=== PATIENT | female | born 1970 | race African-American/Black ===

== ENCOUNTER 2018-11-13 09:40 | Emergency (ER) | payer MEDICAID ==
[~2018-11-13] VITALS: Ht 149.9 cm; Wt 63.5 kg
[~2018-11-13 09:40] MED LIST: ACETAMINOPHEN-1 EAC1 PO; ATORVASTATIN CA40 MG PO; COLACE100 MG PO; CYCLOBENZAPRINE5 MG PO; DICLOFENAC SODI75 MG PO; DOXYCYCLINE 10100 MG PO; IBUPROFEN 600600 M1 PO; MEDROLDOSEPACK PO; MILK OF MA2400 MG/10 PO; MIRALAX17 GM PO; NORCO 5-325 TA1 EAC1 PO; PERCOCET 5-3251 EACH PO; PHENERGAN 25 MG25 M1 PO; PREDNISONE 10 M10 MG PO; PREDNISONE 20 M20 MG PO; PRINIVIL20 MG PO; PROAIR HFA8.5 GM INH; PROZAC10 MG PO; PROZAC20 MG PO; REGLAN 10 MG TA10 MG PO; SEROQUEL 25 MG25 M1 PO; SIMETHICON CHEW80 M1 PO; TESSALON PERLE100 MG PO; TRAZODONE HCL100 MG PO; ULTRAM 50MG TAB50 MG PO; VENTOLIN HFA 1818 GM INH; ZPAK PO
[2018-11-13 10:00] LABS: URINE BILIRUBIN NEGATIVE (Negative); URINE BLOOD 3+ (Negative); URINE CLARITY CLEAR; URINE COLOR YELLOW; URINE GLUCOSE-RANDOM NEGATIVE (Negative); URINE KETONES NEGATIVE (Negative); URINE NITRITE-REFLEX NEGATIVE (Negative); URINE PROTEIN TRACE (Negative); URINE UROBILINOGEN 0.2 E.U./dl (0.2-1.0)
[2018-11-13 10:05] LABS: HEMATOCRIT 34.1 % (37.0-47.0); HEMOGLOBIN 11.4 gm/dL (12.0-15.0); MCH 30.7 pg (26.0-34.0); MCHC 33.5 g/dL (28.0-37.0); MCV 91.6 fL (80.0-100.0); MPV 7.3 fl. (7.2-11.1); NUCLEATED RBCS 0 /100WBC; PLATELET COUNT* 300 thou/uL (150-400); RBC 3.72 mil/uL (4.20-5.00); RDW-CV 13.7 % (10.5-14.5); WBC 4.8 thou/uL (4.0-11.0)
[2018-11-13 10:05] LABS: URINE LEUKOCYTES-REFLEX 2+ (Negative)
[2018-11-13 10:09] LABS: BACTERIA-REFLEX 1-9 Few /HPF (None Seen); CASTS None Seen /LPF (None Seen); CRYSTALS None Seen /LPF (None Seen); SQUAMOUS NONE SEEN /LPF (0-3); URINE RBC >20 Many /HPF (0-2); URINE WBC-REFLEX 0-5 Rare /HPF (0-5)
[2018-11-13 10:22] LABS: ALBUMIN 2.8 g/dL (3.4-5.0); CALCIUM 9.7 mg/dL (8.5-10.1); CREATININE 1.2 mg/dL (0.6-1.3); TOTAL BILIRUBIN 0.6 mg/dL (<0.1-1.0); TOTAL PROTEIN 8.3 g/dL (6.4-8.2)
[2018-11-13 10:26] LABS: POTASSIUM 2.8 mmol/L (3.5-5.1)
[2018-11-13 10:30] LABS: ABSOLUTE BASOPHILS 0.1 thou/uL (0.0-0.2); ABSOLUTE EOSINOPHILS 0.6 thou/uL (0.0-0.7); ABSOLUTE LYMPHOCYTES 1.2 thou/uL (0.8-5.3); ABSOLUTE MONOCYTES 0.1 thou/uL (0.0-1.2); ABSOLUTE NEUTROPHILS 2.6 thou/uL (1.6-8.1)
[2018-11-13 10:31] LABS: ANISOCYTOSIS 1+; PLATELET ESTIMATE ADEQUATE; POIKILOCYTOSIS 1+
[2018-11-13] MEDS ORDERED: NORCO 5-325 TA1 EACH PO (11:03)
[2018-11-13] MEDS ORDERED: FLOMAX0.4 MG PO (11:03)
[2018-11-13] MEDS ORDERED: LEVAQUIN 500 M500 MG PO (11:03)
[2018-11-13 11:14] VITALS: BP 151/96
== END 2018-11-13 11:16 | disposition home or self-care (01) ==
LOC: M.ERS 09:40
PROVIDERS: Family Medicine
DX: N20.0 Calculus of kidney (principal); F31.9 Bipolar disorder, unspecified; Z88.6 Allergy status to analgesic agent; Z88.8 Allergy status to other drugs, medicaments and biological substances

== ENCOUNTER 2018-12-04 02:56 | Emergency (ER) | payer MEDICAID ==
[~2018-12-04] VITALS: Ht 149.9 cm; Wt 62.6 kg
[~2018-12-04 02:56] MED LIST changes: +FLOMAX0.4 MG PO; +LEVAQUIN 500 M500 MG PO; +NORCO 5-325 TA1 EACH PO
[2018-12-04 03:25] LABS: HEMATOCRIT 29.8 % (37.0-47.0); HEMOGLOBIN 10.3 gm/dL (12.0-15.0); MCH 31.6 pg (26.0-34.0); MCHC 34.5 g/dL (28.0-37.0); MCV 91.5 fL (80.0-100.0); MPV 7.3 fl. (7.2-11.1); NUCLEATED RBCS 0 /100WBC; PLATELET COUNT* 291 thou/uL (150-400); RBC 3.26 mil/uL (4.20-5.00); RDW-CV 13.3 % (10.5-14.5); WBC 3.8 thou/uL (4.0-11.0)
[2018-12-04 03:45] LABS: ANION GAP 11 mmol/L (7-16); BUN 10 mg/dL (7-18); CALCIUM 8.4 mg/dL (8.5-10.1); CHLORIDE 103 mmol/L (98-107); CO2 27 mmol/L (21-32); GLUCOSE 82 mg/dL (70-99); SODIUM 141 mmol/L (136-145); TROPONIN-I LEVEL <0.06 ng/mL (<0.06)
[2018-12-04 03:46] LABS: ALBUMIN 2.4 g/dL (3.4-5.0); ALKALINE PHOSPHATASE 689 U/L (46-116); LIPASE 173 U/L (73-393); MAGNESIUM 1.5 mg/dL (1.8-2.4); NT-PRO BRAIN NAT PEPTIDE 730 pg/mL (<300); POTASSIUM 2.9 mmol/L (3.5-5.1); SGOT 42 U/L (15-37); SGPT 22 U/L (30-65); TOTAL BILIRUBIN 0.6 mg/dL (<0.1-1.0); TOTAL PROTEIN 7.7 g/dL (6.4-8.2)
[2018-12-04 05:24] LABS: ABSOLUTE BASOPHILS 0.1 thou/uL (0.0-0.2); ABSOLUTE EOSINOPHILS 0.3 thou/uL (0.0-0.7); ABSOLUTE LYMPHOCYTES 1.6 thou/uL (0.8-5.3); ABSOLUTE MONOCYTES 0.5 thou/uL (0.0-1.2); ABSOLUTE NEUTROPHILS 1.3 thou/uL (1.6-8.1); ANISOCYTOSIS 1+; PLATELET ESTIMATE ADEQUATE; POIKILOCYTOSIS 1+
[2018-12-04] MEDS ORDERED: POTASSIUM20 PO (06:53)
[2018-12-04 09:26] VITALS: BP 151/82
--- NOTE | 2018-12-04 13:10 | EKG ---
[place] [address] ELECTROCARDIOGRAM REPORT Name: TONY JONES [id number] Admission: 12/04/18 Attend Phys: Discharge: 12/04/18 Date of : 70 Report #: [id number] THIS REPORT FOR: //name// [facility] ED Test Date: 2018-12-04 Test Time: 03:03:07 Pat Name: TONY JONES Department: Room: Gender: F Electrical And Instrument Engineer: EMETERIO : 1970 Requested By: Rancho Gavin Order Number: [id number] MD: Ben Avitia Measurements Intervals [place] Rate: 97 P: 54 HI: 175 QRS: 7 QRSD: 90 T: 29 QT: 356 QTc: 452 Interpretive Statements Sinus tachycardia Multiple ventricular premature complexes Probable left atrial enlargement Compared to ECG 03/14/2016 17:24:09 Ventricular premature complex(es) now present Electronically Signed On 12-04-2018 13:10:45 CDT by Ben Avitia [email or web address] <ELECTRONICALLY SIGNED> By: Ben Avitia MD, [facility] 12/04/18 1310 030 2 Ben Avitia MD, FACC /EPI
== END 2018-12-04 09:27 | disposition home or self-care (01) ==
LOC: M.ERS 02:56
PROVIDERS: Emergency Medicine Emergency Medical Services
DX: R07.89 Other chest pain (principal); D86.9 Sarcoidosis, unspecified; F31.9 Bipolar disorder, unspecified; Z88.5 Allergy status to narcotic agent; Z88.6 Allergy status to analgesic agent; Z88.8 Allergy status to other drugs, medicaments and biological substances

== ENCOUNTER 2018-12-29 14:44 | Emergency (ER) | payer MEDICAID ==
[~2018-12-29] VITALS: Ht 149.9 cm; Wt 55.3 kg
[~2018-12-29 14:44] MED LIST changes: +POTASSIUM20 PO
[2018-12-29 15:09] LABS: URINE BILIRUBIN NEGATIVE (Negative); URINE BLOOD 3+ (Negative); URINE COLOR YELLOW; URINE GLUCOSE-RANDOM NEGATIVE (Negative); URINE KETONES NEGATIVE (Negative); URINE NITRITE-REFLEX NEGATIVE (Negative); URINE PROTEIN 2+ (Negative); URINE UROBILINOGEN 0.2 E.U./dl (0.2-1.0)
[2018-12-29 15:10] LABS: URINE CLARITY HAZY; URINE LEUKOCYTES-REFLEX 3+ (Negative)
[2018-12-29 15:19] LABS: BACTERIA-REFLEX 1-9 Few /HPF (None Seen); CASTS None Seen /LPF (None Seen); CRYSTALS None Seen /LPF (None Seen); SQUAMOUS 0-3 Few /LPF (0-3); URINE WBC-REFLEX 6-15 Few /HPF (0-5)
[2018-12-29] MEDS ORDERED: PERCOCET 5-3251 EACH PO (16:32)
[2018-12-29] MEDS ORDERED: CIPRO500 M1 PO (16:34)
[2018-12-29 16:52] VITALS: BP 148/94
== END 2018-12-29 16:53 | disposition home or self-care (01) ==
LOC: M.ERS 14:44
PROVIDERS: Nurse Practitioner Family
DX: N39.0 Urinary tract infection, site not specified (principal); F31.9 Bipolar disorder, unspecified; Z88.5 Allergy status to narcotic agent; Z88.6 Allergy status to analgesic agent; Z88.8 Allergy status to other drugs, medicaments and biological substances; Z87.442 Personal history of urinary calculi

== ENCOUNTER 2019-02-13 17:09 | Emergency (ER) | payer MEDICAID ==
[~2019-02-13] VITALS: Ht 149.9 cm; Wt 63.5 kg
[~2019-02-13 17:09] MED LIST changes: +CIPRO500 M1 PO
[2019-02-13] MEDS ORDERED: PROZAC 20 MG20 MG PO (17:21)
[2019-02-13] MEDS ORDERED: NORCO 10-325 T1 EACH PO (17:21)
[2019-02-13 17:59] LABS: URINE BILIRUBIN NEGATIVE (Negative); URINE BLOOD 3+ (Negative); URINE CLARITY CLEAR; URINE COLOR YELLOW; URINE GLUCOSE-RANDOM NEGATIVE (Negative); URINE KETONES NEGATIVE (Negative); URINE PROTEIN 2+ (Negative); URINE SPECIFIC GRAVITY >= 1.030 (1.005-1.030); URINE UROBILINOGEN 0.2 E.U./dl (0.2-1.0)
[2019-02-13 18:06] LABS: AMP/METHAMP Negative (Negative); BARBITURATES Negative (Negative); BENZODIAZEPINES Negative (Negative); COCAINE Negative (Negative); METHADONE Negative (Negative); OPIATES Negative (Negative); PCP Negative (Negative); THC POSITIVE (Negative)
[2019-02-13 18:06] LABS: URINE LEUKOCYTES-REFLEX 2+ (Negative); URINE NITRITE-REFLEX POSITIVE (Negative)
[2019-02-13 18:13] LABS: BACTERIA-REFLEX >30 Many /HPF (None Seen); CASTS None Seen /LPF (None Seen); SQUAMOUS NONE SEEN /LPF (0-3); URINE RBC 0-2 Rare /HPF (0-2); URINE WBC-REFLEX >25 Many /HPF (0-5)
[2019-02-13 18:14] LABS: CRYSTALS None Seen /LPF (None Seen)
[2019-02-13 18:23] LABS: ABSOLUTE BASOPHILS 0.1 thou/uL (0.0-0.2); ABSOLUTE EOSINOPHILS 0.3 thou/uL (0.0-0.7); ABSOLUTE LYMPHOCYTES 1.3 thou/uL (0.8-5.3); ABSOLUTE MONOCYTES 0.4 thou/uL (0.0-1.2); ABSOLUTE NEUTROPHILS 1.4 thou/uL (1.6-8.1); BASOPHILS 2.4 %; EOSINOPHILS 8.5 %; HEMATOCRIT 31.1 % (37.0-47.0); HEMOGLOBIN 10.3 gm/dL (12.0-15.0); LYMPHOCYTES 38.6 %; MCH 30.8 pg (26.0-34.0); MCHC 33.2 g/dL (28.0-37.0); MCV 92.7 fL (80.0-100.0); MONOCYTES 10.8 %; MPV 7.3 fl. (7.2-11.1); NUCLEATED RBCS 0 /100WBC; PLATELET COUNT* 274 thou/uL (150-400); POLYS 39.7 %; RBC 3.35 mil/uL (4.20-5.00); RDW-CV 13.6 % (10.5-14.5); WBC 3.4 thou/uL (4.0-11.0)
[2019-02-13 18:37] LABS: CALCIUM 9.1 mg/dL (8.5-10.1); CREATININE 1.1 mg/dL (0.6-1.3); POTASSIUM 3.7 mmol/L (3.5-5.1)
[2019-02-13 18:42] LABS: ALBUMIN 2.8 g/dL (3.4-5.0); TOTAL BILIRUBIN 0.6 mg/dL (<0.1-1.0); TOTAL PROTEIN 8.1 g/dL (6.4-8.2)
[2019-02-13] MEDS ORDERED: KEFLEX500 M1 PO (19:37)
[2019-02-13] MEDS ORDERED: HYDROCODON-ACE1 EAC7 PO (19:37)
[2019-02-13 19:49] VITALS: BP 146/93
== END 2019-02-13 19:50 | disposition home or self-care (01) ==
LOC: M.ERS 17:09
PROVIDERS: Nurse Practitioner Psychiatric/Mental Health
DX: N39.0 Urinary tract infection, site not specified (principal); Z76.0 Encounter for issue of repeat prescription; F31.9 Bipolar disorder, unspecified; Z88.5 Allergy status to narcotic agent; Z88.6 Allergy status to analgesic agent; Z88.8 Allergy status to other drugs, medicaments and biological substances; Z87.442 Personal history of urinary calculi; Z79.899 Other long term (current) drug therapy

== ENCOUNTER 2019-02-28 18:55 | Emergency (ER) | payer MEDICAID ==
[~2019-02-28] VITALS: Ht 149.9 cm; Wt 54.4 kg
[~2019-02-28 18:55] MED LIST changes: +HYDROCODON-ACE1 EAC7 PO; +KEFLEX500 M1 PO; +NORCO 10-325 T1 EACH PO; +PROZAC 20 MG20 MG PO
[2019-02-28 19:30] LABS: HEMATOCRIT 29.6 % (37.0-47.0); HEMOGLOBIN 9.9 gm/dL (12.0-15.0); MCH 30.2 pg (26.0-34.0); MCHC 33.5 g/dL (28.0-37.0); MCV 90.3 fL (80.0-100.0); MPV 7.3 fl. (7.2-11.1); NUCLEATED RBCS 0 /100WBC; PLATELET COUNT* 284 thou/uL (150-400); RBC 3.28 mil/uL (4.20-5.00); RDW-CV 13.4 % (10.5-14.5); WBC 3.4 thou/uL (4.0-11.0)
[2019-02-28 19:31] LABS: URINE BILIRUBIN NEGATIVE (Negative); URINE BLOOD 3+ (Negative); URINE CLARITY CLOUDY; URINE COLOR YELLOW; URINE GLUCOSE-RANDOM NEGATIVE (Negative); URINE KETONES NEGATIVE (Negative); URINE PROTEIN 2+ (Negative); URINE SPECIFIC GRAVITY 1.025 (1.005-1.030)
[2019-02-28 19:34] LABS: URINE LEUKOCYTES-REFLEX 3+ (Negative); URINE NITRITE-REFLEX POSITIVE (Negative)
[2019-02-28] MEDS ORDERED: PERCOCET 5-3251 EACH PO (19:35)
[2019-02-28 19:36] LABS: BACTERIA-REFLEX >30 Many /HPF (None Seen); CASTS None Seen /LPF (None Seen); CRYSTALS None Seen /LPF (None Seen); SQUAMOUS NONE SEEN /LPF (0-3); URINE RBC >20 Many /HPF (0-2); URINE WBC-REFLEX >25 Many /HPF (0-5)
[2019-02-28 19:39] LABS: CALCIUM 8.8 mg/dL (8.5-10.1); CREATININE 1.3 mg/dL (0.6-1.3); POTASSIUM 3.4 mmol/L (3.5-5.1)
[2019-02-28 19:43] LABS: ALBUMIN 2.4 g/dL (3.4-5.0); TOTAL BILIRUBIN 0.5 mg/dL (<0.1-1.0); TOTAL PROTEIN 7.7 g/dL (6.4-8.2)
[2019-02-28 19:56] LABS: ABSOLUTE EOSINOPHILS 0.4 thou/uL (0.0-0.7); ABSOLUTE LYMPHOCYTES 0.8 thou/uL (0.8-5.3); ABSOLUTE MONOCYTES 0.2 thou/uL (0.0-1.2); PLATELET ESTIMATE ADEQUATE
[2019-02-28 19:57] VITALS: BP 138/88
== END 2019-02-28 19:58 | disposition home or self-care (01) ==
LOC: M.ERS 18:55
PROVIDERS: Family Medicine
DX: M54.9 Dorsalgia, unspecified (principal); Z76.0 Encounter for issue of repeat prescription; F31.9 Bipolar disorder, unspecified; Z87.442 Personal history of urinary calculi; Z96.0 Presence of urogenital implants; Z88.6 Allergy status to analgesic agent; Z88.5 Allergy status to narcotic agent; Z88.8 Allergy status to other drugs, medicaments and biological substances; Z98.890 Other specified postprocedural states

== ENCOUNTER 2019-08-17 05:01 | Emergency (ER) | payer MEDICAID ==
[~2019-08-17] VITALS: Ht 149.9 cm; Wt 74.8 kg
[2019-08-17 05:16] LABS: URINE BILIRUBIN NEGATIVE (Negative); URINE BLOOD TRACE (Negative); URINE CLARITY CLEAR; URINE COLOR YELLOW; URINE GLUCOSE-RANDOM NEGATIVE (Negative); URINE KETONES NEGATIVE (Negative); URINE LEUKOCYTES-REFLEX 1+ (Negative); URINE NITRITE-REFLEX NEGATIVE (Negative); URINE PROTEIN NEGATIVE (Negative); URINE SPECIFIC GRAVITY 1.015 (1.005-1.030); URINE UROBILINOGEN 0.2 E.U./dl (0.2-1.0)
[2019-08-17 05:27] LABS: BACTERIA-REFLEX 1-9 Few /HPF (None Seen); CASTS None Seen /LPF (None Seen); CRYSTALS None Seen /LPF (None Seen); MUCUS 0-3 Light strn/LPF (None Seen); SQUAMOUS 0-3 Few /LPF (0-3); URINE RBC 0-2 Rare /HPF (0-2); URINE WBC-REFLEX 6-15 Few /HPF (0-5)
[2019-08-17 05:38] LABS: AMP/METHAMP Negative (Negative); BARBITURATES Negative (Negative); BENZODIAZEPINES Negative (Negative); COCAINE Negative (Negative); METHADONE Negative (Negative); OPIATES Negative (Negative); PCP Negative (Negative); THC POSITIVE (Negative)
[2019-08-17] MEDS ORDERED: BACTRIM DS TAB1 EACH PO (06:53)
[2019-08-17] MEDS ORDERED: ZOFRAN ODT4 MG PO (06:53)
[2019-08-17] MEDS ORDERED: HYDROCODON-ACE1 EAC8 PO (06:53)
[2019-08-17 07:34] VITALS: BP 158/106
== END 2019-08-17 07:34 | disposition home or self-care (01) ==
LOC: M.ERS 05:01
PROVIDERS: Emergency Medicine
DX: N39.0 Urinary tract infection, site not specified (principal); R11.2 Nausea with vomiting, unspecified; F31.9 Bipolar disorder, unspecified; Z88.5 Allergy status to narcotic agent; Z88.6 Allergy status to analgesic agent; Z88.8 Allergy status to other drugs, medicaments and biological substances; Z87.442 Personal history of urinary calculi; Z79.899 Other long term (current) drug therapy